=== PATIENT | female | born 1990 | race African-American/Black ===

== ENCOUNTER 2016-08-06 09:41 | Emergency (ER) | payer MEDICAID ==
[~2016-08-06] VITALS: Ht 175.3 cm; Wt 81.6 kg
[2016-08-06 10:07] VITALS: BP 128/87
== END 2016-08-06 10:40 | disposition home or self-care (01) ==
LOC: ER 09:41
DX: H10.9 Unspecified conjunctivitis (principal); E04.9 Nontoxic goiter, unspecified; F17.210 Nicotine dependence, cigarettes, uncomplicated

== ENCOUNTER 2016-08-10 10:10 | Emergency (ER) | payer MEDICAID ==
[~2016-08-10] VITALS: Ht 175.3 cm; Wt 81.6 kg
[2016-08-10 10:28] VITALS: BP 143/94
[2016-08-10] MEDS ORDERED: methylPREDNISolone SOD SUCC 125 MG/2 ML VL IM ONE (11:15)
[2016-08-10] MEDS ORDERED: cefTRIAXone SOD 1,000 MG VL IM ONE (11:15)
== END 2016-08-10 11:46 | disposition home or self-care (01) ==
LOC: ER 10:10
DX: J03.90 Acute tonsillitis, unspecified (principal); J02.9 Acute pharyngitis, unspecified; F17.210 Nicotine dependence, cigarettes, uncomplicated
CPT/HCPCS: 96372; 99284; J0696; J2930

== ENCOUNTER 2019-07-25 21:47 | Inpatient (IN) | payer MEDICAID ==
[~2019-07-25] VITALS: Ht 175.3 cm; Wt 86.6 kg
[2019-07-26] MEDS ORDERED: ENOXAPARIN SOD 100 MG/1 ML SYRINGE SC ONE (01:00)
[2019-07-26] MEDS ORDERED: ONDANSETRON HCL 4 MG/2 ML VIAL IV ONE ×2 (01:00→05:30)
[2019-07-26] MEDS ORDERED: MORPHINE SULFATE 4 MG/ML SYR/VIAL IV ONE ×2 (01:00→05:15)
[2019-07-26 03:14] LABS: Basophils # (auto) 0 10 ^3/uL (0-0.2); Basophils % (auto) 0.3 % (0.0-2.0); Eosinophils # (auto) 0.1 10 ^3/uL (0-0.8); Eosinophils % (auto) 1.4 % (0.0-7.0); Hematocrit 30.8 % (36.0-46.0); Hemoglobin 9.9 g/dL (12.2-16.2); Lymphocytes # (auto) 2.6 10 ^3/uL (0.4-5.4); Lymphocytes % (auto) 40.6 % (10.0-50.0); Mean Corpuscular Hemoglobin 28.3 pg (28.0-32.0); Mean Corpuscular Hgb Conc. 32.3 g/dL (32.0-36.0); Mean Corpuscular Volume 87.6 fL (80.0-100.0); Monocytes # (auto) 0.6 10 ^3/uL (0-1.3); Monocytes % (auto) 9.2 % (0.0-12.0); Neutrophils # (auto) 3.1 10 ^3/uL (1.6-8.6); Neutrophils % (auto) 48.5 % (37.0-80.0); Nucleated Red Blood Cells % 0.1 %; Platelet Count (auto) 158 10^3/uL (140-450); Red Blood Cells 3.51 10^6/uL (4.0-5.20); Red Cell Distribution Width 15.5 % (11.8-14.3); White Blood Cell 6.3 10^3/uL (4.4-10.8)
[2019-07-26 03:35] LABS: Albumin 3.3 g/dL (3.4-5.0); BUN/Creatinine Ratio 15.9; Calcium 8.1 mg/dL (8.5-10.1); Potassium 3.4 mmol/L (3.5-5.1)
[2019-07-26 03:38] LABS: Bilirubin, Total 0.3 mg/dL (0.2-1.0); Total Protein 7.3 g/dL (6.4-8.2)
[2019-07-26 03:50] LABS: INR 1.01 (0.9-1.15); Partial Thromboplastin Time 37.4 sec (23.64-32.05)
[2019-07-26] MEDS ORDERED: IOHEXOL 350 MG/ML 100ML IJ ONE (06:03)
[2019-07-26] MEDS: SODIUM CHLORIDE 0.9% 1,000 ML IV SCH (07:22)
[2019-07-26] MEDS ORDERED: DOCUSATE SOD 100 MG CAP PO PRN (07:30)
[2019-07-26] MEDS ORDERED: ACETAMINOPHEN 325 MG TAB PO PRN (07:30)
[2019-07-26] MEDS ORDERED: LORazepam 0.5 MG TAB PO PRN (07:30)
[2019-07-26] MEDS ORDERED: ONDANSETRON HCL 4 MG/2 ML VIAL IV PRN (07:30)
[2019-07-26] MEDS ORDERED: WARFARIN SODIUM 10 MG TAB PO ONE (08:00)
[2019-07-26] MEDS: ENOXAPARIN SOD 80 MG/0.8ML SYRINGE SC SCH ×2 (08:01→22:12)
[2019-07-26] MEDS: HYDROcodone-ACET 5/325MG TAB PO PRN ×3 (08:19→15:51)
[2019-07-26 10:00] VITALS: BP 128/87
[2019-07-26] MEDS ORDERED: IBUP800T24 PO (10:15)
[2019-07-26 12:23] VITALS: BP 127/84
[2019-07-26 16:21] VITALS: BP 114/75
[2019-07-26] MEDS ORDERED: WARFARIN SODIUM 5 MG TAB PO ONE (17:00)
[2019-07-26] MEDS ORDERED: POTASSIUM CHL 20 Meq TABLET PO ONE (17:00)
[2019-07-26] MEDS: MORPHINE SULF INJ 2 MG/ML SYRINGE 1ML IV PRN (19:43)
[2019-07-26 22:00] VITALS: BP 119/77
[2019-07-27] MEDS: MORPHINE SULF INJ 2 MG/ML SYRINGE 1ML IV PRN ×4 (00:10→19:09)
[2019-07-27] MEDS: SODIUM CHLORIDE 0.9% 1,000 ML IV SCH ×2 (00:11→17:03)
[2019-07-27 05:06] VITALS: BP 121/84
[2019-07-27 06:14] LABS: INR 1.02 (0.9-1.15)
[2019-07-27 08:00] VITALS: BP 122/75
[2019-07-27] MEDS: ENOXAPARIN SOD 80 MG/0.8ML SYRINGE SC SCH ×2 (08:16→21:23)
[2019-07-27] MEDS: HYDROcodone-ACET 5/325MG TAB PO PRN ×3 (08:17→21:32)
[2019-07-27 12:25] VITALS: BP 118/76
[2019-07-27 16:31] VITALS: BP 114/79
[2019-07-27] MEDS ORDERED: WARFARIN SODIUM 10 MG TAB PO ONE (17:00)
[2019-07-27 22:42] VITALS: BP 110/86
[2019-07-28] MEDS: HYDROcodone-ACET 5/325MG TAB PO PRN ×4 (03:08→20:23)
[2019-07-28 05:15] LABS: Basophils # (auto) 0 10 ^3/uL (0-0.2); Basophils % (auto) 0.4 % (0.0-2.0); Eosinophils # (auto) 0.1 10 ^3/uL (0-0.8); Eosinophils % (auto) 1.9 % (0.0-7.0); Hematocrit 31.4 % (36.0-46.0); Lymphocytes # (auto) 1.8 10 ^3/uL (0.4-5.4); Lymphocytes % (auto) 44.7 % (10.0-50.0); Mean Corpuscular Hgb Conc. 31.8 g/dL (32.0-36.0); Mean Corpuscular Volume 87.9 fL (80.0-100.0); Monocytes # (auto) 0.4 10 ^3/uL (0-1.3); Monocytes % (auto) 10.9 % (0.0-12.0); Neutrophils # (auto) 1.7 10 ^3/uL (1.6-8.6); Neutrophils % (auto) 42.1 % (37.0-80.0); Platelet Count (auto) 178 10^3/uL (140-450); Red Blood Cells 3.57 10^6/uL (4.0-5.20); Red Cell Distribution Width 14.6 % (11.8-14.3); White Blood Cell 4.1 10^3/uL (4.4-10.8)
[2019-07-28 05:28] VITALS: BP 123/77
[2019-07-28 05:30] LABS: INR 1.07 (0.9-1.15); Partial Thromboplastin Time 42.7 sec (23.64-32.05)
[2019-07-28 05:32] LABS: BUN/Creatinine Ratio 8.6; Magnesium 2.1 mg/dL (1.6-2.6); Potassium 3.4 mmol/L (3.5-5.1)
[2019-07-28 08:35] VITALS: BP 115/77
[2019-07-28] MEDS: SODIUM CHLORIDE 0.9% 1,000 ML IV SCH (08:50)
[2019-07-28] MEDS: ENOXAPARIN SOD 80 MG/0.8ML SYRINGE SC SCH (10:03)
[2019-07-28 13:00] VITALS: BP 106/67
[2019-07-28] MEDS ORDERED: POTASSIUM CHL 20 Meq TABLET PO ONE (14:15)
[2019-07-28 17:00] VITALS: BP 128/88
[2019-07-28] MEDS ORDERED: WARFARIN SODIUM 10 MG TAB PO ONE (17:00)
[2019-07-28] MEDS: APIXABAN 5 MG TAB PO SCH (18:11)
[2019-07-28] MEDS ORDERED: PATIENTS OWN MEDICATION (ELIQUIS 10 MG) PO SCH (19:00)
[2019-07-28 22:00] VITALS: BP 131/81
[2019-07-29] MEDS: SODIUM CHLORIDE 0.9% 1,000 ML IV SCH (02:41)
[2019-07-29 05:00] VITALS: BP 120/74
[2019-07-29] MEDS: HYDROcodone-ACET 5/325MG TAB PO PRN (05:42)
[2019-07-29 06:35] LABS: INR 1.08 (0.9-1.15)
[2019-07-29] MEDS: APIXABAN 5 MG TAB PO SCH (08:28)
[2019-07-29 09:00] VITALS: BP 121/77
[2019-07-29 13:00] VITALS: BP 113/78
[2019-07-29 15:36] VITALS: BP 113/78
[2019-07-29 16:35] VITALS: BP 121/89
[2019-08-04] MEDS ORDERED: APIXABAN 5 MG TAB PO SCH (19:00)
== END 2019-07-29 17:09 | disposition home or self-care (01) | DRG 197 ==
LOC: ER 21:48 → OVERFLOW 21:49 → CENTRAL 07-26 09:40
PROVIDERS: ADMIT Hospitalist; ATTEND Internal Medicine
DX: I82.441 Acute embolism and thrombosis of right tibial vein (principal); I26.99 Other pulmonary embolism without acute cor pulmonale; E87.6 Hypokalemia; D50.9 Iron deficiency anemia, unspecified; F17.210 Nicotine dependence, cigarettes, uncomplicated; N76.0 Acute vaginitis
CPT/HCPCS: 36415; 71275; 80048; 80053; 83735; 85025; 85379; 85610; 85730; 87070; 93971; 96372; 96374; 96375; 96376; G0378; J2405

== ENCOUNTER 2020-09-08 07:09 | Emergency (ER) | payer MEDICAID ==
[~2020-09-08] VITALS: Ht 175.3 cm; Wt 84.4 kg
[2020-09-08 07:54] VITALS: BP 124/84
== END 2020-09-08 08:48 | disposition home or self-care (01) ==
LOC: ER 07:09
DX: S56.911A Strain of unspecified muscles, fascia and tendons at forearm level, right arm, initial encounter (principal); S86.911A Strain of unspecified muscle(s) and tendon(s) at lower leg level, right leg, initial encounter; X58.XXXA Exposure to other specified factors, initial encounter; Y93.89 Activity, other specified; Y92.89 Other specified places as the place of occurrence of the external cause; Y99.8 Other external cause status
CPT/HCPCS: 73090

== ENCOUNTER 2020-09-20 17:36 | Emergency (ER) | payer MEDICAID ==
[~2020-09-20] VITALS: Ht 175.3 cm; Wt 86.6 kg
[2020-09-20] MEDS ORDERED: ACETAMINOPHEN 325 MG TAB PO ONE (18:00)
[2020-09-20] MEDS ORDERED: SODIUM CHLORIDE 0.9% 1,000 ML IV ONE (18:00)
[2020-09-20 18:42] LABS: Albumin 3.9 g/dL (3.4-5.0); Basophils # (auto) 0 10 ^3/uL (0-0.2); Basophils % (auto) 0.3 % (0.0-2.0); Calcium 8.7 mg/dL (8.5-10.1); Eosinophils # (auto) 0 10 ^3/uL (0-0.8); Eosinophils % (auto) 0.2 % (0.0-7.0); Hematocrit 34.4 % (36.0-46.0); Hemoglobin 11.2 g/dL (12.2-16.2); Lymphocytes # (auto) 1.5 10 ^3/uL (0.4-5.4); Lymphocytes % (auto) 16.8 % (10.0-50.0); Mean Corpuscular Hemoglobin 27.9 pg (28.0-32.0); Mean Corpuscular Hgb Conc. 32.6 g/dL (32.0-36.0); Mean Corpuscular Volume 85.8 fL (80.0-100.0); Monocytes # (auto) 0.7 10 ^3/uL (0-1.3); Monocytes % (auto) 7.7 % (0.0-12.0); Neutrophils # (auto) 6.5 10 ^3/uL (1.6-8.6); Nucleated Red Blood Cells % 0.1 %; Potassium 3.6 mmol/L (3.5-5.1); Red Blood Cells 4.01 10^6/uL (4.0-5.20); Red Cell Distribution Width 16.7 % (11.8-14.3); White Blood Cell 8.6 10^3/uL (4.4-10.8)
[2020-09-20 18:45] LABS: BUN/Creatinine Ratio 19.1
[2020-09-20 18:48] LABS: Bilirubin, Total 0.2 mg/dL (0.2-1.0)
[2020-09-20 21:08] LABS: Urine Bacteria FEW /hpf (None Seen); Urine Blood Negative /uL (Negative); Urine Specific Gravity 1.018 (1.001-1.035); Urine WBC 9 /hpf (0 - 5)
[2020-09-20] MEDS ORDERED: IOHEXOL 350 MG/ML 100ML IJ ONE (22:10)
[2020-09-21 00:23] VITALS: BP 115/79
== END 2020-09-21 02:05 | disposition home or self-care (01) ==
LOC: ER 17:36
DX: M79.661 Pain in right lower leg (principal); F17.210 Nicotine dependence, cigarettes, uncomplicated; Z32.02 Encounter for pregnancy test, result negative; Z20.822 Contact with and (suspected) exposure to COVID-19
CPT/HCPCS: 36415; 71045; 71275; 80053; 81001; 81025; 82728; 83605; 85025; 87426; 87880; 93005; 96360; 99285; J7030; Q9967

== ENCOUNTER 2020-09-22 10:01 | Emergency (ER) | payer MEDICAID ==
[~2020-09-22] VITALS: Ht 175.3 cm; Wt 86.2 kg
[2020-09-22 10:40] VITALS: BP 123/85
[2020-09-22] MEDS ORDERED: LIDOCAINE 1% HCL (LOCAL ANESTH.) INJ 20ML MDV ONE (10:59)
[2020-09-22] MEDS ORDERED: methylPREDNISolone SOD SUCC 125 MG/2 ML VL IM ONE (11:00)
[2020-09-22] MEDS ORDERED: cefTRIAXone SOD 1,000 MG VL IM ONE (11:00)
[2020-09-22] MEDS ORDERED: IBUPROFEN 800 MG TAB PO ONE (11:00)
== END 2020-09-22 11:17 | disposition home or self-care (01) ==
LOC: ER 10:01
DX: J02.0 Streptococcal pharyngitis (principal); R51.9 Headache, unspecified; F17.210 Nicotine dependence, cigarettes, uncomplicated; Z86.73 Personal history of transient ischemic attack (TIA), and cerebral infarction without residual deficits
CPT/HCPCS: 81025; 96372; 99284; J0696; J2001; J2930